=== PATIENT | male | born 1970 | race Caucasian/White ===

== ENCOUNTER 2017-05-07 19:39 | Emergency (ER) | payer SELFPAY ==
[2017-05-07 20:00] VITALS: BP 154/93
--- NOTE | 2017-05-07 20:42 | UC ---
Throat Pain/Nasal Sergio HPI - HPI Summary HPI Summary: pt c/o nasal congestion, cough, sore throat and laryngitis x 3 weeks. - History of Current Complaint Chief Complaint: UCRespiratory Stated Complaint: SORE THROAT Time Seen by Provider: 05/07/17 20:32 Hx Obtained From: Patient Onset/Duration: Gradual Onset, Lasting Weeks - 3, Still Present Severity: Mild Cough: Nonproductive Associated Signs & Symptoms: Positive: Dysphagia, Wheezing, Sinus Discomfort Related History: Smoking - Allergies/Home Medications Allergies/Adverse Reactions: Allergies Allergy/AdvReac Type Severity Reaction Status Date / Time No Known Allergies Allergy Verified 09/19/15 19:31 PMH/Surg Hx/FS Hx/Imm Hx Previously Healthy: Yes - Surgical History Surgical History: Yes Surgery Procedure, Year, and Place: r. 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 [employer] Lives: Alone Alcohol Use: Rare Substance Use Type: None Smoking Status (MU): Heavy Every Day Tobacco Smoker Type: Cigarettes Amount Used/How Often: 2 pack day Length of Time of Smoking/Using Tobacco: 33 YRS Have You Smoked in the Last Year: Yes - Immunization History Vaccination Up to Date: No Review of Systems Constitutional: Fatigue Skin: Negative Eyes: Negative ENT: Sore Throat, Sinus Congestion, Sinus Pain/Tenderness Respiratory: Shortness Of Breath - with exertion, Cough Cardiovascular: Negative Gastrointestinal: Negative Genitourinary: Negative Motor: Negative Neurovascular: Negative Musculoskeletal: Negative Neurological: Negative Psychological: Negative Is Patient Immunocompromised?: No All Other Systems Reviewed And Are Negative: Yes Physical Exam Triage Information Reviewed: Yes Appearance: Ill-Appearing Vital Signs: Initial Vital Signs Temp 97.4 F 05/07/17 19:52 Pulse 117 05/07/17 19:52 Resp 18 05/07/17 19:52 BP 154/93 05/07/17 19:52 Pulse Ox 97 05/07/17 19:52 Vital Signs Reviewed: Yes Eye Exam: Normal ENT Exam: Other ENT: Positive: Pharyngeal erythema, Nasal congestion, Tonsillar swelling, Sinus tenderness Respiratory Exam: Other Respiratory: Positive: Decreased breath sounds - bilateral bases Cardiovascular Exam: Normal Musculoskeletal Exam: Normal Neurological Exam: Normal Psychological Exam: Normal Skin Exam: Normal Throat Pain/Nasal Course/Dx - Differential Dx/Diagnosis Differential Diagnosis/HQI/PQRI: Tonsillitis, URI Provider Diagnoses: bronchitis Discharge - Discharge Plan Condition: Stable Disposition: HOME Prescriptions: Amoxicillin PO (*) [Amoxicillin 875 MG (*)] 875 mg PO Q12H #20 tab predniSONE TAB* [Deltasone TAB*] 30 mg PO DAILY #12 tab Patient Education Materials: Pharyngitis (ED), Acute Bronchitis (ED) Referrals: Clarisa Lay MD [Primary Care Provider] - As Soon As Possible
[2017-05-07] MEDS ORDERED: Amoxicillin PO (*) 500 MG CAP PO ONE (20:44)
== END 2017-05-07 21:01 | disposition home or self-care (01) ==
LOC: UCCORT 19:39
DX: J40 Bronchitis, not specified as acute or chronic (principal); F17.210 Nicotine dependence, cigarettes, uncomplicated
CPT/HCPCS: 99212; A9270-GY; G0463

== ENCOUNTER 2017-06-24 14:12 | Emergency (ER) | payer SELFPAY ==
[2017-06-24 14:52] VITALS: BP 150/93
--- NOTE | 2017-06-24 15:30 | UC ---
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 " Reports that he was here last month w/ same sx. given augmentin and 4 days of prednisone and sx resolved. continues to smoke. he was asx x 2 wks before sx returned. not as bad this time, as he came in after 10 days of sx rather than 5 wks of sx. possible wheezing. a lot of nasal congestion/ PND and sinus pain. -no known COPD, but never been tested. never used nettipot, inhaler or steroid nasal spray. 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 - History of Current Complaint Chief Complaint: UCRespiratory Stated Complaint: THROAT,EAR COMPLAINT,SHORTNESS OF BREATH Time Seen by Provider: 06/24/17 15:00 - Allergies/Home Medications Allergies/Adverse Reactions: Allergies Allergy/AdvReac Type Severity Reaction Status Date / Time No Known Allergies Allergy Verified 06/24/17 14:47 PMH/Surg Hx/FS Hx/Imm Hx Previously Healthy: Yes - Surgical History Surgical History: Yes Surgery Procedure, Year, and Place: [facility]--AGE 14 YRS - Family History Known Family History: Positive: Cardiac Disease - Social History Alcohol Use: Rare Substance Use Type: None Smoking Status (MU): Heavy Every Day Tobacco Smoker Type: Cigarettes Amount Used/How Often: 1 1/2-2 pack day Length of Time of Smoking/Using Tobacco: 33 YRS Have You Smoked in the Last Year: Yes - Immunization History Most Recent Influenza Vaccination: not this season Vaccination Up to Date: No Review of Systems Constitutional: Negative Skin: Negative Eyes: Negative ENT: Negative, Sore Throat, Nasal Discharge, Sinus Congestion, Sinus Pain/ Tenderness Respiratory: Negative Cardiovascular: Negative Gastrointestinal: Negative Genitourinary: Negative Motor: Negative Neurovascular: Negative Musculoskeletal: Negative Neurological: Negative Psychological: Negative Is Patient Immunocompromised?: No All Other Systems Reviewed And Are Negative: Yes Physical Exam Triage Information Reviewed: Yes Appearance: Well-Appearing, No Pain Distress, Well-Nourished - very pleasant Vital Signs: Initial Vital Signs Temp 97.5 F 06/24/17 14:48 Pulse 86 06/24/17 14:48 Resp 20 06/24/17 14:48 BP 150/93 06/24/17 14:48 Pulse Ox 96 06/24/17 14:48 Vital Signs Reviewed: Yes Eye Exam: Normal ENT: Positive: Pharyngeal erythema, Nasal congestion, TMs normal, Sinus tenderness, Uvula midline. Negative: Tonsillar swelling, Tonsillar exudate Dental Exam: Normal Neck exam: Normal Neck: Positive: Supple, Nontender, No Lymphadenopathy Respiratory Exam: Normal Respiratory: Positive: Normal breath sounds, Decreased breath sounds. Negative : Crackles, Rhonchi, Stridor, Wheezing Cardiovascular Exam: Normal Cardiovascular: Positive: RRR, No Murmur, Pulses Normal Musculoskeletal Exam: Normal Neurological Exam: Normal Psychological Exam: Normal Diagnostic Evaluation - Laboratory O2 Sat by Pulse Oximetry: 96 Respiratory Course/Dx - Differential Dx/Diagnosis Differential Diagnosis/HQI/PQRI: Asthma, Bronchitis, Sinusitis Provider Diagnoses: sinusitis, bronchitis Discharge - Discharge Plan Condition: Stable Disposition: HOME Prescriptions: Albuterol HFA INHALER* [Ventolin HFA Inhaler*] 2 puff INH Q4H PRN 30 Days #1 mdi PRN Reason: Cough Albuterol/Ipratropium RESP(NF) [Combivent Respimat(NF)] 1 aer IN QID PRN 30 Days #1 aer PRN Reason: Cough Amoxicillin PO (*) [Amoxicillin 875 MG (*)] 875 mg PO BID #20 tab Methylprednisolone [Medrol Dosepak 4 MG*] 4 mg PO DAILY #1 ellen Patient Education Materials: Sinusitis (ED), Acute Bronchitis (ED), COPD ( Chronic Obstructive Pulmonary Disease) (ED) Referrals: No Primary Care Phys,NOPCP [Primary Care Provider] - [facility] [Provider Group] Additional Instructions: -Make sure to take a probiotic daily while on antibiotics to help prevent a potential complication of antibiotic use called c diff. Some well known brands that can be found OTC are florastor, align and KeriCure. Make sure to complete the entire prescription unless advised otherwise by your health care provider. -You should get a saline lavage kit to use daily as we discussed. some brand names are "rosa med" or "netti pot". Follow that with a steroid nasal spray called flonase daily. -You should follow up with your PCP and have a breathing test done for COPD. I printed out a COPD info sheet for you, even though you don't have this official diagnosis, so you can read about it. -Having a chest xray may be beneficial as well. -It is highly recommended that you stop smoking. -I have sent in a prescription for combivent and gave you a $75 coupon. If it is too expensive, you can use the albuterol I sent in. The Combivent has albuterol in it and should not be taken within 4-6hrs of albuterol.
== END 2017-06-24 16:24 | disposition home or self-care (01) ==
LOC: UCCORT 14:12
DX: J32.9 Chronic sinusitis, unspecified (principal); J40 Bronchitis, not specified as acute or chronic; J02.9 Acute pharyngitis, unspecified; F17.210 Nicotine dependence, cigarettes, uncomplicated
CPT/HCPCS: 99212; G0463

== ENCOUNTER 2019-01-20 19:17 | Emergency (ER) | payer SELFPAY ==
[2019-01-20 19:39] VITALS: BP 177/92
[2019-01-20] MEDS ORDERED: Sulfamethox/Trimethoprim DS 800/160* TAB PO ONE (19:45)
--- NOTE | 2019-01-20 19:51 | UC ---
Hand/Wrist HPI - HPI Summary HPI Summary: COUPLE MONTHS AGO PT INJURED RIGHT HAND- JAMMED HAND INTO [employer] STEERING WHEEL. PAIN WORSE TODAY AFTER TRYING TO PERFORMANCE TEST ARCHITECT PHONE PT FELT SHARP PAIN. ALSO NOTICED PIMPLE-LIKE BUMPS ON BOTH ARMS- ITCHED/POPPED PIMPLES AND CONCERNED ABOUT MRSA INFECTION- HX OF MRSA. NO FEVER/CHILLS. TOOK 800MG IBUPROFEN AT 1500. - History Of Current Complaint Chief Complaint: UCGeneralIllness Stated Complaint: RIGHT HAND CONCERN Time Seen by Provider: 01/20/19 19:38 Hx Obtained From: Patient ?: No Onset/Duration: Sudden Onset, Lasting Days Severity Initially: Mild Severity Currently: Mild Pain Intensity: 2 Character Of Pain: Throbbing, Spasmodic Aggravating Factor(s): Movement Alleviating Factor(s): Rest Associated Signs And Symptoms: Positive: Swelling, Weakness Related History: Dominant Hand Right - Allergies/Home Medications Allergies/Adverse Reactions: Allergies Allergy/AdvReac Type Severity Reaction Status Date / Time No Known Allergies Allergy Verified 01/20/19 19:28 PMH/Surg Hx/FS Hx/Imm Hx Previously Healthy: Yes - Surgical History Surgical History: Yes Surgery Procedure, Year, and Place: r. ankle--AGE 14 YRS - Family History Known Family History: Positive: Cardiac Disease - Social History Alcohol Use: Rare Substance Use Type: None Smoking Status (MU): Heavy Every Day Tobacco Smoker Type: Cigarettes Amount Used/How Often: 1 1/2-2 pack day Length of Time of Smoking/Using Tobacco: 33 YRS Have You Smoked in the Last Year: Yes - Immunization History Most Recent Influenza Vaccination: not this season Vaccination Up to Date: No Review of Systems All Other Systems Reviewed And Are Negative: Yes Skin: Positive: Rash Physical Exam Vital Signs: Initial Vital Signs Temp 98.2 F 01/20/19 19:29 Pulse 92 01/20/19 19:29 Resp 16 01/20/19 19:29 BP 177/92 01/20/19 19:29 Pulse Ox 97 01/20/19 19:29 Hand/Wrist Course/Dx - Course Course Of Treatment: hx obtained, exam performed ,meds reviewed, xray appears negative for fracture. educated on care of the injured hand. treated for folliculitis of the upper left arm - Differential Dx/Diagnosis Differential Diagnosis/HQI/PQRI: Contusion, Fracture, Sprain, Strain Provider Diagnosis: Contusion of right hand, Folliculitis Discharge - Sign-Out/Discharge Documenting (check all that apply): Patient Departure All imaging exams completed and their final reports reviewed: No - Discharge Plan Condition: Stable Disposition: HOME Prescriptions: Sulfamethox/Trimethoprim DS* [Bactrim DS 800/160 TAB*] 1 tab PO BID #13 tab Patient Education Materials: Contusion in Adults (ED) Referrals: No Primary Care Phys,NOPCP [Primary Care Provider] - Additional Instructions: 1. warm water soaks and iburprofen for pain and swelling 2. Take the antibiotic as prescribed. 3. Follow up with orthopedics if hand is not improving over the next week. - Billing Disposition and Condition Condition: STABLE Disposition: Home
--- NOTE | 2019-01-21 08:54 | UC ---
- Results/Orders Results/Orders: no fx Course/Dx - Diagnoses Provider Diagnoses: Contusion of right hand, Folliculitis Discharge - Sign-Out/Discharge Documenting (check all that apply): Post-Discharge Follow Up All imaging exams completed and their final reports reviewed: Yes - Discharge Plan Condition: Stable Disposition: HOME Prescriptions: Sulfamethox/Trimethoprim DS* [Bactrim DS 800/160 TAB*] 1 tab PO BID #13 tab Patient Education Materials: Contusion in Adults (ED) Referrals: No Primary Care Phys,NOPCP [Primary Care Provider] - Additional Instructions: 1. warm water soaks and iburprofen for pain and swelling 2. Take the antibiotic as prescribed. 3. Follow up with orthopedics if hand is not improving over the next week. - Billing Disposition and Condition Condition: STABLE Disposition: Home
== END 2019-01-20 20:30 | disposition home or self-care (01) ==
LOC: UCCORT 19:17
DX: S60.221A Contusion of right hand, initial encounter (principal); W22.8XXA Striking against or struck by other objects, initial encounter; Y93.89 Activity, other specified; Y92.9 Unspecified place or not applicable; L73.9 Follicular disorder, unspecified; Z86.14 Personal history of Methicillin resistant Staphylococcus aureus infection; F17.210 Nicotine dependence, cigarettes, uncomplicated
CPT/HCPCS: 99212; A9270-GY; G0463

== ENCOUNTER 2019-06-14 19:47 | Emergency (ER) | payer SELFPAY ==
[2019-06-14 20:17] VITALS: BP 139/90
[2019-06-14] MEDS ORDERED: Cephalexin CAP* 500 MG PO ONE ×2 (20:36)
[2019-06-14] MEDS ORDERED: Mupirocin 2% OINT* TUBE TOPICAL ONE (20:39)
--- NOTE | 2019-06-14 20:41 | UC ---
Skin Complaint HPI - HPI Summary HPI Summary: 49-year-old male comes in with a chief complaint of a rash around a healing laceration on the left forearm. He lacerated his left forearm on June 02, 2019 on some barn board. He's been cleaning it and putting Neosporin on it ever since. It has been healing however it started to follow-up a rash around the wound. It itches. No fevers or chills. No difficulty with range of motion of the arm. Feels well otherwise. - History of Current Complaint Chief Complaint: UCRash Time Seen by Provider: 06/14/19 20:27 Stated Complaint: LEFT ARM RASH Pain Intensity: 0 - Allergy/Home Medications Allergies/Adverse Reactions: Allergies Allergy/AdvReac Type Severity Reaction Status Date / Time No Known Allergies Allergy Verified 06/14/19 20:18 Home Medications: Home Medications Ibuprofen TAB* [Advil TAB*] 1,000 mg PO DAILY PRN 06/14/19 [History Confirmed ] PMH/Surg Hx/FS Hx/Imm Hx Previously Healthy: Yes - Surgical History Surgical History: Yes Surgery Procedure, Year, and Place: r. ankle--AGE 14 YRS - Family History Known Family History: Positive: Cardiac Disease - Social History Alcohol Use: Occasionally Substance Use Type: Excessive Caffeine Smoking Status (MU): Heavy Every Day Tobacco Smoker Type: Cigarettes Amount Used/How Often: 1 1/2-2 pack day Length of Time of Smoking/Using Tobacco: 33 YRS Have You Smoked in the Last Year: Yes - Immunization History Most Recent Influenza Vaccination: not this season Most Recent Tetanus Shot: UTD Vaccination Up to Date: No Review of Systems All Other Systems Reviewed And Are Negative: Yes Constitutional: Positive: Negative Skin: Positive: Other - SEE HPI Eyes: Positive: Negative ENT: Positive: Negative Respiratory: Positive: Negative Cardiovascular: Positive: Negative Gastrointestinal: Positive: Negative Motor: Positive: Negative Neurovascular: Positive: Negative Musculoskeletal: Positive: Negative Neurological: Positive: Negative Psychological: Positive: Negative Is Patient Immunocompromised?: No Physical Exam Triage Information Reviewed: Yes Appearance: Well-Appearing, No Pain Distress, Well-Nourished Vital Signs: Initial Vital Signs Temp 98.7 F 06/14/19 20:04 Pulse 101 06/14/19 20:04 Resp 18 06/14/19 20:04 BP 139/90 06/14/19 20:04 Pulse Ox 98 06/14/19 20:04 Vital Signs Reviewed: Yes Eye Exam: Normal Eyes: Positive: Conjunctiva Clear Neck: Positive: Supple Respiratory: Positive: No respiratory distress Musculoskeletal: Positive: Strength Intact, ROM Intact Neurological: Positive: Alert, Muscle Tone Normal Psychological: Positive: Age Appropriate Behavior Skin: Positive: Other - Left forearm has a laceration that is 2.5 cm long and 2 cm wide that healing by primary intention. There is a surrounding rash with satellite lesions it's erythematous with occasional pustules with a diameter of approximately 8 cm. I did take a culture off on the pustules. The wound itself appears to be healing well. Course/Dx - Course Course Of Treatment: This appears to be a laceration of left forearm that's healing well by primary intention with a secondary rash on it potentially secondary to the Neosporin. M starting Keflex orally. Discussed with the patient to stop the Neosporin., Replace that with mupirocin. Follow-up with primary care doctor or get reevaluated sooner if worse or any questions or concerns. - Diagnoses Provider Diagnosis: Rash, Laceration of skin of left forearm Discharge ED - Sign-Out/Discharge Documenting (check all that apply): Patient Departure All imaging exams completed and their final reports reviewed: No Studies - Discharge Plan Condition: Stable Disposition: HOME Prescriptions: Cephalexin CAP* [Keflex CAP*] 500 mg PO QID #38 cap Mupirocin 1 applic TOPICAL BID #22 gm Patient Education Materials: Acute Rash (ED), Laceration Without Closure (ED) Referrals: [facility] [Outside] Additional Instructions: FOLLOW UP WITH YOUR DOCTOR IF NOT COMPLETELY IMPROVED. Stop using the neomycin as it may be causing a reaction to your skin. GET REEVALUATED SOONER IF NOT IMPROVING OR WORSE OR ANY QUESTIONS OR CONCERNS. - Billing Disposition and Condition Condition: STABLE Disposition: Home
== END 2019-06-14 21:03 | disposition home or self-care (01) ==
LOC: UCCORT 19:47
DX: R21 Rash and other nonspecific skin eruption (principal); F17.210 Nicotine dependence, cigarettes, uncomplicated; S51.812D Laceration without foreign body of left forearm, subsequent encounter; X58.XXXD Exposure to other specified factors, subsequent encounter
CPT/HCPCS: 87070; 87077; 87186; 87205; 87640; 87641; 99213; A9270-GY; G0463